=== PATIENT | female | born 1940 | race Asian ===

== ENCOUNTER 2017-07-06 03:50 | Inpatient (IN) | payer MEDICARE, OTHER ==
[2017-07-06] VITALS (7 sets, daily range): BP systolic 111–133; BP diastolic 38–56
[~2017-07-06] VITALS: Ht 152.4 cm; Wt 52.2 kg
[2017-07-06 05:23] LABS: BASOPHILS % 0.4 % (0.0-2.0); EOSINOPHILS % 5.1 % (0.0-5.0); HEMATOCRIT. 37.7 % (36.0-48.0); HEMOGLOBIN. 12.4 g/dL (12.0-16.0); LYMPHOCYTES % 14.9 % (20.0-50.0); MEAN CORPUSCULAR HEMOGLOBIN 28.3 pg (28.0-32.0); MEAN CORPUSCULAR VOLUME 85.7 fL (81.0-99.0); MONOCYTES % 3.5 % (2.0-8.0); NEUTROPHILS % 76.1 % (40.0-76.0); PLATELET 246 x1000/uL (130-400); RED CELL DISTRIBUTION WIDTH 13.7 % (11.6-14.6)
[2017-07-06 05:34] LABS: D-DIMER 0.53 mg/L FEU (<0.50); PARTIAL THROMBOPLASTIN TIME 25.2 sec (23.4-31.0); PROTHROMBIN TIME 10.1 sec (9.4-11.6)
[2017-07-06 05:47] LABS: CARBON DIOXIDE 25 mEq/L (21-32); CHLORIDE 107 mEq/L (98-107); TROPONIN I < 0.02 ng/mL (0.00-0.04)
[2017-07-06 05:52] LABS: CREATINE KINASE 101 IU/L (26-192)
[2017-07-06] MEDS ORDERED: NITROGLYCERIN 0.4MG TABLET SL SL PRN (07:00)
[2017-07-06] MEDS ORDERED: DOCUSATE SODIUM 100MG CAPSULE PO PRN (07:00)
[2017-07-06] MEDS ORDERED: CLONIDINE 0.1MG TABLET PO PRN (07:00)
[2017-07-06] MEDS ORDERED: DIPHENHYDRAMINE 50MG/ML VIAL IV PRN (07:00)
[2017-07-06] MEDS ORDERED: IPRATROPIUM/ALBUTEROL 0.5-3(2.5)MG/3ML NEB INH PRN (07:00)
[2017-07-06] MEDS ORDERED: TRAMADOL 50MG TABLET PO PRN (07:00)
[2017-07-06] MEDS ORDERED: LORAZEPAM 2MG/ML CPJ IV PRN (07:00)
[2017-07-06] MEDS ORDERED: MAGNESIUM/ALUMINUM HYDROXIDE/SIMETHICONE 30ML UDC PO PRN (07:00)
[2017-07-06] MEDS ORDERED: ONDANSETRON HCL 4MG/2ML VIAL IV PRN (07:00)
[2017-07-06] MEDS ORDERED: ACETAMINOPHEN 325MG TABLET PO PRN (07:00)
[2017-07-06] MEDS ORDERED: LORAZEPAM 0.5MG TABLET PO ONE (07:00)
[2017-07-06] MEDS ORDERED: ZOLPIDEM TARTRATE 5MG TABLET PO PRN (07:00)
[2017-07-06] MEDS ORDERED: NA PHOS,M-B/NA PHOS,DI-BA ENEMA 118ML PR PRN (07:00)
[2017-07-06] MEDS ORDERED: GUAIFENESIN 200MG/10ML SUGAR FREE UDC PO PRN (07:00)
[2017-07-06] MEDS ORDERED: AMLO2.5T45 PO (10:05)
[2017-07-06] MEDS ORDERED: ASPI-1160 PO (10:05)
[2017-07-06] MEDS ORDERED: APIX2.5T PO (10:55)
[2017-07-06] MEDS ORDERED: FLEC100T2 PO (11:01)
[2017-07-06] MEDS ORDERED: IBAN150T9 PO (11:03)
[2017-07-06] MEDS ORDERED: LANS30CA55 PO (11:03)
[2017-07-06] MEDS ORDERED: LOSA50TA20 PO (11:04)
[2017-07-06] MEDS ORDERED: NADO20TA12 PO (11:06)
[2017-07-06] MEDS ORDERED: PRAV40TA58 PO (11:07)
[2017-07-06] MEDS ORDERED: INFLUENZA VIRUS VACCINE 0.5ML SYR IM ONE (11:15)
[2017-07-06] MEDS: SUCRALFATE 1 G/10 ML UDC PO SCH ×4 (12:04→21:30)
[2017-07-06] MEDS: ASPIRIN 325MG EC TABLET PO SCH (12:04)
[2017-07-06] MEDS: FAMOTIDINE 20MG/2ML VIAL IV SCH (12:04)
[2017-07-06 16:27] LABS: CREATINE KINASE 72 IU/L (26-192); TROPONIN I < 0.02 ng/mL (0.00-0.04)
[2017-07-06] MEDS: APIXABAN 5 MG TABLET PO SCH (17:21)
[2017-07-06 17:33] LABS: *AMPHETAMINES SCREEN URINE NEGATIVE (NEGATIVE); *BARBITURATES SCREEN URINE NEGATIVE (NEGATIVE); *BENZODIAZEPINES SCREEN URINE NEGATIVE (NEGATIVE); *COCAINE SCREEN URINE NEGATIVE (NEGATIVE); CANNABINOID URINE SCREEN NEGATIVE (NEGATIVE); METHADONE URINE SCREEN NEGATIVE (NEGATIVE); OPIATES URINE SCREEN NEGATIVE (NEGATIVE); PHENCYCLIDINE URINE SCREEN NEGATIVE (NEGATIVE)
[2017-07-06] MEDS ORDERED: SODI104S3 NS (18:48)
[2017-07-06 23:40] LABS: CREATINE KINASE 54 IU/L (26-192); CREATINE KINASE MB FRACTION 0.7 ng/mL (0.5-3.6); TROPONIN I < 0.02 ng/mL (0.00-0.04)
[2017-07-07] VITALS: BP 92/44
[2017-07-07 04:00] VITALS: BP 103/43
[2017-07-07] MEDS: APIXABAN 5 MG TABLET PO SCH (06:00)
[2017-07-07 08:00] VITALS: BP 108/51
[2017-07-07] MEDS: ASPIRIN 325MG EC TABLET PO SCH (08:28)
[2017-07-07] MEDS: FAMOTIDINE 20MG/2ML VIAL IV SCH (08:28)
[2017-07-07] MEDS: SUCRALFATE 1 G/10 ML UDC PO SCH ×2 (08:28→12:45)
[2017-07-07 12:00] VITALS: BP 108/59
[2017-07-07 12:49] VITALS: BP 108/59
[2017-07-07] MEDS ORDERED: APIXABAN 5 MG TABLET PO NR (14:57)
== END 2017-07-07 15:30 | disposition home or self-care (01) | DRG 72 ==
LOC: ER 03:51 → 7WST 06:46 → SUPCPDRO 06:53 → ENRESERV 07:26
PROVIDERS: ADMIT Internal Medicine; ATTEND Internal Medicine
DX: G93.40 Encephalopathy, unspecified (principal); I11.0 Hypertensive heart disease with heart failure; I50.9 Heart failure, unspecified; I48.91 Unspecified atrial fibrillation; Z86.73 Personal history of transient ischemic attack (TIA), and cerebral infarction without residual deficits; Z90.710 Acquired absence of both cervix and uterus; Z88.0 Allergy status to penicillin; Z88.2 Allergy status to sulfonamides; Z88.8 Allergy status to other drugs, medicaments and biological substances
CPT/HCPCS: 36415; 70450; 70551; 71010; 80053; 80061; 80305; 82550; 82553; 83036; 83690; 83880; 84443; 84484; 85025; 85379; 85610; 85730; 93005; 93306; 93880; 93970; 99285; J3490